=== PATIENT | female | born 1955 | race Caucasian/White ===

== ENCOUNTER 2024-06-21 12:51 | Emergency (ER) | payer MEDICARE, BC ==
[2024-06-21] MEDS ORDERED: Lidocaine 1% (PF) 30 ML VIAL ONE (13:07)
[2024-06-21] MEDS ORDERED: Boostrix 0.5 ML (Tdap) VIAL (>/=7 yrs of age) ONE (13:08)
[2024-06-21] MEDS ORDERED: Bacitracin 1 PK ONE (15:01)
== END 2024-06-21 14:10 | disposition home or self-care (01) ==
LOC: MADERS 12:51
DX: S61.210A Laceration without foreign body of right index finger without damage to nail, initial encounter (principal); Z23 Encounter for immunization; W23.1XXA Caught, crushed, jammed, or pinched between stationary objects, initial encounter
CPT/HCPCS: 12002; 90471; 90715